=== PATIENT | male | born 1950 | race Caucasian/White ===

== ENCOUNTER 2016-07-03 06:22 | Inpatient (IN) | payer OTHER ==
[2016-06-26 14:22] LABS: BASOPHILS 0.3 %; BASOPHILS ABSOLUTE 0.02 10/3/uL (0.0-0.16); EOSINOPHILS 1.7 %; EOSINOPHILS ABSOLUTE 0.11 10/3/uL (0.0-0.53); HEMATOCRIT 44.1 % (40.0-51.0); HEMOGLOBIN 13.9 g/dL (13.6-17.8); IMMATURE GRANULOCYTES 0.2 %; IMMATURE GRANULOCYTES ABSOLUTE 0.01 10/3/uL (0.0-0.11); LYMPHOCYTES 28.4 %; LYMPHOCYTES ABSOLUTE 1.79 10/3/uL (0.67-4.30); MANUAL DIFF NO %; MEAN CORPUS HGB CONC 31.5 g/dL (32.0-36.0); MEAN CORPUSCULAR HEMOGLOB 28.1 pg (26.0-34.0); MEAN CORPUSCULAR VOLUME 89.3 fL (80-100); MONOCYTES 5.9 %; MONOCYTES ABSOLUTE 0.37 10/3/uL (0.21-1.20); NEUTROPHILS 63.5 %; PLATELET COUNT 171 10/3/uL (150-400); RBC DISTRIBUTION WIDTH 20.8 % (12.0-16.0); RED CELL COUNT 4.94 10/6/uL (4.7-6.1); WHITE BLOOD CELLS 6.3 10/3/uL (4.5-10.5)
[2016-06-26 14:32] LABS: INTERNATIONAL NORMAL RATI 1.1 UNITS (-); PROTIME (NOT ORD) 14.1 SEC (12.0-14.5)
[2016-06-26 14:36] LABS: % IRON SAT 64 % (20-50); A/G RATIO 1.1 (0.7-1.9); ALKALINE PHOSPHATASE 51 U/L (45-117); BUN (BLOOD UREA NITROGEN) 19 MG/DL (6-23); CALCIUM, SERUM 9.2 MG/DL (8.5-10.4); CHLORIDE, SERUM 105 MMOL/L (96-112); CO2 (CARBON DIOXIDE) 32 MMOL/L (24-34); GFR AFRICAN AMERICAN 80 ML/MIN (>=60); GFR NON AFRICAN AMERICAN 69 ML/MIN (>=60); GLOBULIN 3.6 G/DL (2.5-4.1); GLUCOSE, SERUM 86 MG/DL (60-99); IRON BINDING CAPACITY 365 MCG/DL (250-450); IRON, SERUM 233 MCG/DL (35-150); SGOT(AST) 13 U/L (5-40); SGPT(ALT) 25 U/L (5-65); SODIUM, SERUM 141 MMOL/L (135-148); TOTAL BILIRUBIN 0.5 MG/DL (0-1.2); TOTAL PROTEIN 7.6 G/DL (6.0-8.5)
[2016-06-26 14:38] LABS: POTASSIUM, SERUM 4.6 MMOL/L (3.5-5.3)
[2016-06-26 15:30] LABS: ASCORBIC ACID (UR NOT ORDER) NEG (NEG); BILIRUBIN, URINE NEGATIVE (NEG); KETONE, URINE NEGATIVE (NEG); LEUKOCYTE ESTERASE(NOT OR NEG (NEG); WBC (NOT ORDERED) (RFLEX) < 1 (0-5)
--- NOTE | ~2016-07-03 | DS ---
Discharge Summary [facility] [address] [place]. [address] NAME: CHILO FERMIN : 46 STATUS : DIS IN PAT#: [id number] AGE: 65 ADM/REG DATE : 07/03/16 MR#: [id number] REPORT SERV DATE: 07/16/16 DICTATED BY: CHILO ESPINO DATE: 07/16/16 REPORT STATUS : Draft TRANSCRIBED BY: JOSÉ MIGUEL DATE: 07/16/16 Data Collection from hospitalization DISCHARGE DIAGNOSES: 1. Mitral insufficiency. 2. Chronic obstructive pulmonary disease. 3. Hypertension. 4. Oral anticoagulation. 5. History of lung cancer. 6. Anemia. 7. Former smoker. CONSULTATIONS: Lacey Guevara M.D. PROCEDURES PERFORMED: Mitral valve repair using [place]-Neftali garrett-cords x3, mitral valve annuloplasty using 38 mm annuloplasty ring system (Physio II), and transesophageal echocardiography on 07/03/2016. PATHOLOGY: Left atrial appendage resected portion - cardiac tissues - within normal limits. MEDICATIONS: Vitamin C 1000 mg twice a day, aspirin 81 mg daily, Lipitor 10 mg at bedtime, ferrous sulfate 325 mg three times a day, Prozac 20 mg at bedtime, Lasix 40 mg daily, Argos 5/325 one to two tablets every four hours as needed, Ativan 0.5 mg three times a day as needed, Lopressor 25 mg twice a day, Zyprexa 5 mg at bedtime, Protonix 40 mg at bedtime, Klor-Con 20 mEq daily, and Coumadin 2 mg daily. Coumadin would be held on 07/08/2016 and resumed on 07/09/2016. He was instructed not to continue lisinopril/hydrochlorothiazide 20/25. CONDITION AT DISCHARGE: Stable. DISPOSITION: The patient was discharged home on an 1800-calorie diabetic/cardiac diet with activities as instructed. He would follow up with Dr. Joseph Mcdaniel on 08/07/2016 and Abelino Mendoza on 07/30/2016. He would follow up with a new primary care physician following discharge and would follow up at the [facility] on 07/10/2016. HOSPITAL COURSE: This is a 65-year-old man who has a history of mitral valve insufficiency. He has had progressive dyspnea and fatigue over the past one to two years. He recently had an echocardiogram that demonstrated worsening mitral valve insufficiency within an eccentric jet, it was felt to be severe. Transesophageal echocardiogram was performed and confirmed to the eccentricity of the mitral regurgitant jet and appeared to be a cleft between A2 and A3. The patient had a Salazar-looking valve with redundant anterior and posterior leaflets. There was no evidence of ruptured cord or severe collapse. Cardiac catheterization demonstrated no surgically significant coronary artery disease. Ventricular function was preserved with ejection fraction greater than 50%. There was mild aortic insufficiency. Treatment options were discussed and it was elected to proceed with surgical intervention. He was in the hospital for further evaluation and treatment. Upon admission, he was taken to the operating room where he underwent the above-mentioned Discharge Summary [address] [address] NAME: MEGCHILO DEL ROSARIO : 46 STATUS : DIS IN PAT#: [id number] AGE: 65 ADM/REG DATE : 07/03/16 MR#: [id number] REPORT SERV DATE: 07/16/16 DICTATED BY: CHILO ESPINO DATE: 07/16/16 REPORT STATUS : Draft TRANSCRIBED BY: JOSÉ MIGUEL DATE: 07/16/16 procedure. He tolerated this well, and there were no complications. Postoperatively, he was seen by Dr. Lacey Guevara. The patient was still intubated and sedated. He was on pressor support. He was in a sinus rhythm. Left ventricular ejection fraction of 60%. On postop day #1, Milrinone drip continued. Chest tubes were in place as well as his pacing wires. His lungs were clear. He is being weaned off his drips. On 07/05/2016, he complained of pain at the chest tube site and some sternal soreness. He had no shortness of breath or palpitations. Atrial fibrillation prophylaxis continued. His white count was 20.5. Cardene and Dobutrex drip were being weaned. On 07/06/2016, he was in a normal sinus rhythm. Warfarin was going to begin. Amiodarone was stopped. He was encouraged to be up sitting in a chair. He was in atrial fibrillation - rate controlled. Over the next couple of days, he continued to do well. He was ambulatory. His edema had decreased. Beta-manolo was increased. FLORENTINO inhibitor was decreased. Discharge planning was performed. On 07/08/2016, he continued to do well. INR level was 2.2. His incisions looked okay. He had 2+ lower extremity edema. Discharge instructions were given. Due to his improved and stable condition, he was discharged home with the above-stated instructions. Information collected by: Kinza Hutton I submit the above information as my discharge summary. ROBERT/JOSÉ MIGUEL Chilo Espino M.D. / [id number] CC: Bhargav Ojeda M.D.
--- NOTE | ~2016-07-03 | OP ---
Record Of Operation [facility] [address] [place]. [address] NAME: CHILO FERMIN : 46 STATUS : ADM IN PAT#: [id number] AGE: 65 ADM/REG DATE : 07/03/16 MR#: [id number] REPORT SERV DATE: 07/06/16 DICTATED BY: CHILO ESPINO DATE: 07/06/16 REPORT STATUS : Draft TRANSCRIBED BY: MODL DATE: 07/06/16 DATE OF PROCEDURE: 07/03/2016 CONTINUATION: FINDINGS: 1. Cross-clamp time 89 minutes. Total pump time 158 minutes. 2 L of Custodiol solution given antegrade x1. 2. The mitral valve was very myxomatous and redundant. There is anterior leaflet and posterior leaflet redundancy. The P2 cusp of the posterior leaflet did appear to rise above the plane of the valve with distention of the ventricle. We placed three [place]- Neftali NeoChords on this P2 cusp of the posterior leaflet, which lowered the coapting plane of P2 to A2. This improved the overall coaptation of the anterior and posterior leaflets to greater than 2 cm with resolution of insufficiency on saline injection into the left ventricle. 3. We placed a 38 mm annuloplasty ring system to support and reinforce this repair. 23 cor-knots were used to secure it in place. 4. We did ligate and amputate the left atrial appendage. 5. On coming off the heart-lung bypass machine, there was right ventricular hypocontractility requiring extra rest on the heart-lung bypass machine. I suspected air was the cause of this. We did have to rest on cardiopulmonary bypass. After about 30-45 minutes extra, and with inotropic agents, we were able to come off the bypass pump and with nice resolution of the inferior ST lead changes that you could see on EKG during this time. At the end of the operation, PATRICIO demonstrated left ventricular function to be near normal. There was mild hypocontractility of the right ventricle, but still was functioning well. There was less than 1+ or trace mitral insufficiency per Dr. Malloy. PATHOLOGIC SPECIMENS: Include the left atrial appendage. DESCRIPTION OF PROCEDURE: The patient was brought to the operating suite where general anesthesia was induced, airway secured with an endotracheal tube. Lines were secured by Anesthesia and Leong catheter was placed. PATRICIO probe was placed by Dr. Malloy and examination carried out as discussed above. A midline sternal incision was made and the sternum opened with a saw. Lines were passed from the field for cardiopulmonary bypass and cleared of air. Heparin was administered by Anesthesia. Cannulation pursestring sutures were placed in the ascending aorta and right atrium and cannulation carried out in routine manner. A dual-stage venous cannula was placed in the right atrial appendage. When all was in readiness, the patient was placed on cardiopulmonary bypass. The ligament of Darvin near the base of the left atrial appendage was divided using cautery. The aorta was then cross clamped. Initial and only dose of cold crystalloid solution using Custodiol was administered in antegrade fashion for a total of 2 L. During this time, a small left Record Of Operation [place] [id number] [facility] [place] [place]. [address] NAME: CHILO FERMIN : 46 STATUS : ADM IN [facility]#: [id number] AGE: 65 ADM/REG DATE : 07/03/16 MR#: [id number] REPORT SERV DATE: 07/06/16 DICTATED BY: CHILO ESPINO DATE: 07/06/16 REPORT STATUS : Draft TRANSCRIBED BY: JOSÉ MIGUEL DATE: 07/06/16 atriotomy was made after dissecting out the interatrial groove of [place]. The heart was then gently retracted towards the surgeon. The left atrial appendage was grasped. It was ligated and amputated at its base using thoracoscopic stapler and a 60 mm purple staple load. Following the first dose of cardioplegia, the interatrial groove of [place] was fully dissected and the left atriotomy enlarged. The Chacha retractor apparatus was assembled and positioned allowing good visualization of the mitral valve. The mitral valve was inspected and iced saline was used in distending the left ventricle. There was a very redundant P2 cusp of the posterior leaflet of the mitral valve. There was no flail leaflet and no ruptured cords. I did not see a significant cleft between A2 and A3. 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 I felt that shortening the excursion of P2 and lowering the height of the P2 cusp with systole would improve coaptation in the anterior leaflet and posterior leaflet and hopefully resolve most of the mitral insufficiency. This was planned out and the adjacent chordae were measured to P3 and lateral edges of P2 at 18 mm. We then used [place]-Neftali CV-4 suture and created three NeoChords. This was then secured to the papillary muscle with a pledgeted CV-4 suture. Then, each loop of the NeoChord was brought up to the free edge of the P2 cusp and secured in place using a 5-0 Prolene suture. After placement of the [place]-Neftali NeoChords and after each [place]-Neftali NeoChord was secured, iced saline injection through the orifice of the mitral valve was performed to qa automation developer the repair. Following the placement of three [place]-Neftali NeoChords. The ventricle would stand very nicely and with no insufficiency. There was good coaptation in the anterior and posterior leaflet and even in the region of P2 cusp, which was redundant. We did not see any areas of cleft that had any significant leak. The valve was then sized and a 38 mm annuloplasty ring system was selected (Physio II). Interrupted nonpledgeted sutures of 2-0 Ti-Cron placed circumferentially about the mitral valve annulus in a horizontal mattress fashion. The sutures were then passed through the sewing cuff of the valve, which was lowered into position. Each of the sutures were then individually secured and divided using a cor-knot device. A total of 23 cor-knots were utilized. Iced saline injection through the orifice of the mitral valve as the final test demonstrated no insufficiency. An LV vent was then placed through right superior pulmonary vein and directed through the mitral valve orifice into the left ventricle. The patient was placed in Trendelenburg and left atriotomy was closed in a two-layer fashion with running pledgeted suture of 4-0 Prolene. Then, the left ventricle and ascending aorta were de-aired, and aortic cross-clamp was removed. Ventricular and atrial pacing wires have been placed. Suture lines and staple lines on the base of the left atrial appendage were inspected and made hemostatic. The heart was allowed to rest on cardiopulmonary bypass. Ventilations were begun. The heart had an overall hypocontractile state and there was significant ST elevation in the inferior leads. Using the PATRICIO probe, Dr. Malloy was able to see the circumflex vessel and confirmed that there was good flow through the circumflex vessel. The right coronary artery was ascertained and we did not see air and there was good dopplerable signal through the right coronary artery. I considered the fact that possibly we dislodged air into the right coronary artery during our testing of the Record Of Operation [place] [address] [place]. [address] NAME: CHILO FERMIN : 46 STATUS : ADM IN PAT#: [id number] AGE: 65 ADM/REG DATE : 07/03/16 MR#: [id number] REPORT SERV DATE: 07/06/16 DICTATED BY: CHILO ESPINO DATE: 07/06/16 REPORT STATUS : Draft TRANSCRIBED BY: MODL DATE: 07/06/16 mitral valve. We decided at that point to just rest the heart on bypass as there was evidence that the ST elevation was coming down with time. With an additional 30-45 minutes on the bypass pump, ST elevation had largely diminished. Right ventricular contractility was improving and inotropic agents were started. After adequate rest on bypass with inotropic agents, the heart was allowed to fill and eject. De-airing was confirmed on PATRICIO, and when de-airing was completed, the LV vent was removed and these pursestring sutures tied. The ascending aortic vent was likewise removed and these pursestring sutures tied and reinforced. The patient was then weaned from cardiopulmonary bypass with inotropic support. The venous cannula was removed and the pursestring suture secured and later tied. PATRICIO examination demonstrated good left ventricular function with mildly reduced right ventricular contractility. There was a very trivial jet of MR seen with echo and this is graded to be less than mild. There was no significant tricuspid valve insufficiency. Protamine was administered by Anesthesia and following a period of hemodynamic stability, the aortic cannula was removed and these pursestring sutures tied and reinforced. The patient continued do well and chest was irrigated copiously with saline. Meticulous hemostasis was obtained. Hemasorb was ordered was placed along the cut edge of the sternum. Once hemostasis was assured, the pericardium was draped over the anterior surface of heart and tacked into position. Chest tubes were placed and the sternum reapproximated with 8 sternal wires. The clavipectoral fascia and linea alba closed with #1 Stratafix as was subcutaneous tissue. The skin was closed in subcuticular fashion. The patient tolerated the procedure well. There were no complications. Sponge and needle counts were correct. DISPOSITION: The patient left intubated, sedated, and transported to the intensive care unit in stable condition. WAYNE/JOSÉ MIGUEL Chilo Espino M.D. / [id number] CC: Bhargav Ojeda M.D. Donald Robinson, M.D.
--- NOTE | ~2016-07-03 | OP ---
Record Of Operation [facility] [address] [place]. [address] NAME: CHILO FERMIN : 46 STATUS : ADM IN PAT#: [id number] AGE: 65 ADM/REG DATE : 07/03/16 MR#: [id number] REPORT SERV DATE: 07/06/16 DICTATED BY: CHILO ESPINO DATE: 07/06/16 REPORT STATUS : Draft TRANSCRIBED BY: MODL DATE: 07/06/16 DATE OF PROCEDURE: 07/03/2016 PREOPERATIVE DIAGNOSES: 1. Mitral valve insufficiency. 2. Myxomatous mitral valve. 3. Chronic obstructive pulmonary disease. 4. History of right lower lobe lung cancer and status post right lower lobectomy. 5. Hypertension. POSTOPERATIVE DIAGNOSES: 1. Mitral valve insufficiency. 2. Myxomatous mitral valve. 3. Chronic obstructive pulmonary disease. 4. History of right lower lobe lung cancer and status post right lower lobectomy. 5. Hypertension. PROCEDURE PERFORMED: 1. Mitral valve repair using [place]-Neftali garrett-chords x3. 2. Mitral valve annuloplasty using 38 mm annuloplasty ring system (Physio 2). 3. Transesophageal echocardiography. SURGEON: Chilo Espino M.D. ASSISTANTS: Roman Reynolds and Gonzales Alvarado. ANESTHESIA: General with Dr. Malloy. BEHAVIORAL HEALTH CONSULTANT: Joseph Mcdaniel M.D. INDICATIONS: This is a 65-year-old gentleman with a history of mitral valve insufficiency. He has had progressive dyspnea and fatigue over the last one to two years. He recently had an echocardiogram that demonstrated worsening mitral valve insufficiency with an eccentric jet. It was felt to be severe. PATRICIO was then performed and has confirmed the eccentricity of the mitral regurgitant jet and appeared to be a cleft between A2 and A3, and the patient had a Salazar's-looking valve with redundant anterior and posterior leaflets. There were no evidence of ruptured cords or severe prolapse. Cardiac catheterization was then performed demonstrating no surgically significant coronary artery disease. Ventricular function was preserved with an ejection fraction greater than 50%. There was mild aortic insufficiency. We were asked to see the patient for possible mitral valve repair or replacement. We discussed the operation with the patient and his family and after discussing the operations, indication, risks, he wished to proceed. Preoperatively, SDS risk of mortality with surgery less than 1% risk of morbidity, mortality less than 10% were shared with the family. FINDINGS AT OPERATION: 1. Cross-clamp 89 minutes. Total pump time 158 minutes. We utilized chcf Record Of Operation [address] [address] NAME: CHILO FERMIN : 46 STATUS : ADM IN [facility]#: [id number] AGE: 65 ADM/REG DATE : 07/03/16 MR#: [id number] REPORT SERV DATE: 07/06/16 DICTATED BY: CHILO ESPINO DATE: 07/06/16 REPORT STATUS : Draft TRANSCRIBED BY: JOSÉ MIGUEL DATE: 07/06/16 crystalloid solution. 2. Mitral valve was myxomatous with anterior and posterior leaflet redundancy. There was extremely redundant P2 cusp. INCOMPLETE DICTATION WAYNE/JOSÉ MIGUEL Chilo Espino M.D. / [id number] CC: Bhargav Ojeda M.D.
[~2016-07-03 06:22] MED LIST: ATV.5 PO; ATV1 PO; FERROUS SULF325 M1 PO; LOP25 PO; MULTIPLE VIT PO; NORCO1 TAB PO; PRIN20 PO; PROTONIX PO; PROZAC PO; REST15 PO; ROLAIDS PO; ZESTORETIC1 TA1 PO; ZYP5 PO; ZYPREXA ZYDI20 MG PO
[2016-07-03 15:33] LABS: BE (BASE EXCESS) -8.9 MEQ/L (0 +/- 2.5); CARBOXYHEMOGLOBIN 0.3 % (0-3); INSTRUMENT SERIAL # 11843; METHEMOGLOBIN 0.5 % (0-3); MODE SIMV; O2 CONTENT 16.8 VOL% (18-24); OPERATOR ID 19104; PCO2 (CO2 TENSION) 37 MMHG (35-45); PO2 (O2 TENSION) 174 MMHG (79-93); SAMPLE Arterial; TIDAL VOLUME 800 ML; pH 7.28 (7.37-7.43)
[2016-07-03 16:11] LABS: BUN (BLOOD UREA NITROGEN) 19 MG/DL (6-23); CHLORIDE, SERUM 112 MMOL/L (96-112); CREATININE 1.21 MG/DL (0.70-1.30); GFR AFRICAN AMERICAN 71 ML/MIN (>=60); GFR NON AFRICAN AMERICAN 62 ML/MIN (>=60); INTERNATIONAL NORMAL RATI 1.7 UNITS (-); PARTIAL THROMBO TIME 30.6 SEC (22.5-37.2); SODIUM, SERUM 145 MMOL/L (135-148)
[2016-07-03 16:12] LABS: CALCIUM, SERUM 8.1 MG/DL (8.5-10.4); CO2 (CARBON DIOXIDE) 20 MMOL/L (24-34); GLUCOSE, SERUM 126 MG/DL (60-99); POTASSIUM, SERUM 3.9 MMOL/L (3.5-5.3); PROTIME (NOT ORD) 19.6 SEC (12.0-14.5)
[2016-07-03 16:17] LABS: HEMOGLOBIN 11.4 g/dL (13.6-17.8)
[2016-07-03 16:20] LABS: HEMATOCRIT 35.4 % (40.0-51.0); PLATELET COUNT 84 10/3/uL (150-400)
[2016-07-03 18:48] LABS: BE (BASE EXCESS) -5.2 MEQ/L (0 +/- 2.5); CARBOXYHEMOGLOBIN 0.1 % (0-3); DEVICE NC; HCO3 (ACTUAL BICARBONATE) 20.3 MEQ/L (23-27); HEMOBLOGIN CONTENT 12.6 G/DL (14-18); INSTRUMENT SERIAL # 11843; METHEMOGLOBIN 0.5 % (0-3); O2 CONTENT 16.6 VOL% (18-24); OPERATOR ID 13715; PCO2 (CO2 TENSION) 39 MMHG (35-45); PO2 (O2 TENSION) 74 MMHG (79-93); SAMPLE Arterial; pH 7.33 (7.37-7.43)
[2016-07-03 22:16] LABS: HEMATOCRIT 36.6 % (40.0-51.0); HEMOGLOBIN 12.1 g/dL (13.6-17.8)
[2016-07-03 22:26] LABS: POTASSIUM, SERUM 4.2 MMOL/L (3.5-5.3)
[2016-07-04 05:25] LABS: INTERNATIONAL NORMAL RATI 1.3 UNITS (-)
[2016-07-04 05:30] LABS: PROTIME (NOT ORD) 16.3 SEC (12.0-14.5)
[2016-07-04 05:35] LABS: BUN (BLOOD UREA NITROGEN) 25 MG/DL (6-23); CHLORIDE, SERUM 108 MMOL/L (96-112); CO2 (CARBON DIOXIDE) 23 MMOL/L (24-34); CREATININE 0.93 MG/DL (0.70-1.30); GFR AFRICAN AMERICAN 98 ML/MIN (>=60); GFR NON AFRICAN AMERICAN 85 ML/MIN (>=60); GLUCOSE, SERUM 139 MG/DL (60-99); POTASSIUM, SERUM 4.3 MMOL/L (3.5-5.3); SODIUM, SERUM 140 MMOL/L (135-148)
[2016-07-04 06:13] LABS: BASOPHILS 0.1 %; BASOPHILS ABSOLUTE 0.01 10/3/uL (0.0-0.16); EOSINOPHILS 0 %; HEMATOCRIT 33.5 % (40.0-51.0); HEMOGLOBIN 11.3 g/dL (13.6-17.8); IMMATURE GRANULOCYTES 0.2 %; IMMATURE GRANULOCYTES ABSOLUTE 0.02 10/3/uL (0.0-0.11); LYMPHOCYTES 3.9 %; LYMPHOCYTES ABSOLUTE 0.45 10/3/uL (0.67-4.30); MEAN CORPUSCULAR HEMOGLOB 29.9 pg (26.0-34.0); MEAN CORPUSCULAR VOLUME 88.6 fL (80-100); MONOCYTES 3.7 %; MONOCYTES ABSOLUTE 0.43 10/3/uL (0.21-1.20); NEUTROPHILS 92.1 %; NEUTROPHILS ABSOLUTE 10.56 10/3/uL (2.02-8.40); PLATELET COUNT 84 10/3/uL (150-400)
[2016-07-04 06:14] LABS: MANUAL DIFF NO %; MEAN CORPUS HGB CONC 33.7 g/dL (32.0-36.0); RED CELL COUNT 3.78 10/6/uL (4.7-6.1); WHITE BLOOD CELLS 11.5 10/3/uL (4.5-10.5)
[2016-07-04 07:09] LABS: ANISOCYTOSIS 1+ (5-10/OIF) (0-5/OIF)
[2016-07-04 07:10] LABS: PLATELET ESTIMATE DEC (ADEQUATE)
[2016-07-04 15:57] LABS: HEMATOCRIT 33.2 % (40.0-51.0); HEMOGLOBIN 11.2 g/dL (13.6-17.8)
[2016-07-04 16:04] LABS: POTASSIUM, SERUM 4.6 MMOL/L (3.5-5.3)
[2016-07-05 04:33] LABS: BASOPHILS 0 %; EOSINOPHILS 0 %; HEMATOCRIT 34.1 % (40.0-51.0); HEMOGLOBIN 11.1 g/dL (13.6-17.8); IMMATURE GRANULOCYTES 0.1 %; IMMATURE GRANULOCYTES ABSOLUTE 0.03 10/3/uL (0.0-0.11); LYMPHOCYTES 6.1 %; LYMPHOCYTES ABSOLUTE 1.25 10/3/uL (0.67-4.30); MEAN CORPUS HGB CONC 32.6 g/dL (32.0-36.0); MEAN CORPUSCULAR HEMOGLOB 29.1 pg (26.0-34.0); MEAN CORPUSCULAR VOLUME 89.3 fL (80-100); MONOCYTES 5.7 %; MONOCYTES ABSOLUTE 1.16 10/3/uL (0.21-1.20); NEUTROPHILS 88.1 %; NEUTROPHILS ABSOLUTE 18.04 10/3/uL (2.02-8.40); PLATELET COUNT 92 10/3/uL (150-400); RBC DISTRIBUTION WIDTH 20.4 % (12.0-16.0); RED CELL COUNT 3.82 10/6/uL (4.7-6.1)
[2016-07-05 04:34] LABS: MANUAL DIFF NO %; WHITE BLOOD CELLS 20.5 10/3/uL (4.5-10.5)
[2016-07-05 04:38] LABS: CALCIUM, SERUM 7.8 MG/DL (8.5-10.4); CHLORIDE, SERUM 102 MMOL/L (96-112); CO2 (CARBON DIOXIDE) 23 MMOL/L (24-34); CREATININE 0.98 MG/DL (0.70-1.30); GFR AFRICAN AMERICAN 92 ML/MIN (>=60); GFR NON AFRICAN AMERICAN 79 ML/MIN (>=60); POTASSIUM, SERUM 4.8 MMOL/L (3.5-5.3); SODIUM, SERUM 134 MMOL/L (135-148)
[2016-07-05 04:39] LABS: BUN (BLOOD UREA NITROGEN) 29 MG/DL (6-23); GLUCOSE, SERUM 100 MG/DL (60-99)
[2016-07-05 05:41] LABS: ANISOCYTOSIS 1+ (5-10/OIF) (0-5/OIF); PLATELET ESTIMATE DEC (ADEQUATE)
[2016-07-05 05:42] LABS: HELMET CELLS OCC (0-2/OIF)
[2016-07-05 22:18] LABS: POTASSIUM, SERUM 4.1 MMOL/L (3.5-5.3)
[2016-07-06 03:41] LABS: BASOPHILS 0 %; EOSINOPHILS 0 %; HEMATOCRIT 32.5 % (40.0-51.0); HEMOGLOBIN 10.8 g/dL (13.6-17.8); IMMATURE GRANULOCYTES 0.4 %; IMMATURE GRANULOCYTES ABSOLUTE 0.07 10/3/uL (0.0-0.11); LYMPHOCYTES 7.1 %; LYMPHOCYTES ABSOLUTE 1.26 10/3/uL (0.67-4.30); MEAN CORPUS HGB CONC 33.2 g/dL (32.0-36.0); MEAN CORPUSCULAR VOLUME 90.3 fL (80-100); MEAN PLATELET VOLUME 11.1 fL (9.2-13.0); MONOCYTES ABSOLUTE 1.25 10/3/uL (0.21-1.20); NEUTROPHILS 85.5 %; NEUTROPHILS ABSOLUTE 15.24 10/3/uL (2.02-8.40); PLATELET COUNT 83 10/3/uL (150-400); RBC DISTRIBUTION WIDTH 20.2 % (12.0-16.0); WHITE BLOOD CELLS 17.8 10/3/uL (4.5-10.5)
[2016-07-06 03:43] LABS: MANUAL DIFF NO %
[2016-07-06 03:55] LABS: BUN (BLOOD UREA NITROGEN) 28 MG/DL (6-23); CALCIUM, SERUM 7.7 MG/DL (8.5-10.4); CHLORIDE, SERUM 105 MMOL/L (96-112); CO2 (CARBON DIOXIDE) 24 MMOL/L (24-34); CREATININE 0.98 MG/DL (0.70-1.30); GFR AFRICAN AMERICAN 92 ML/MIN (>=60); GFR NON AFRICAN AMERICAN 79 ML/MIN (>=60); GLUCOSE, SERUM 100 MG/DL (60-99); POTASSIUM, SERUM 4.6 MMOL/L (3.5-5.3); SODIUM, SERUM 136 MMOL/L (135-148)
[2016-07-06 05:32] LABS: GIANT PLATELET OCC; PLATELET ESTIMATE DEC (ADEQUATE)
[2016-07-07 06:14] LABS: BASOPHILS 0 %; EOSINOPHILS 0.3 %; EOSINOPHILS ABSOLUTE 0.03 10/3/uL (0.0-0.53); HEMATOCRIT 31.5 % (40.0-51.0); HEMOGLOBIN 10.5 g/dL (13.6-17.8); IMMATURE GRANULOCYTES 0.2 %; IMMATURE GRANULOCYTES ABSOLUTE 0.02 10/3/uL (0.0-0.11); LYMPHOCYTES 14.4 %; LYMPHOCYTES ABSOLUTE 1.45 10/3/uL (0.67-4.30); MANUAL DIFF NO %; MEAN CORPUS HGB CONC 33.3 g/dL (32.0-36.0); MEAN CORPUSCULAR HEMOGLOB 30.3 pg (26.0-34.0); MEAN CORPUSCULAR VOLUME 90.8 fL (80-100); MEAN PLATELET VOLUME 10.7 fL (9.2-13.0); MONOCYTES 9.8 %; MONOCYTES ABSOLUTE 0.99 10/3/uL (0.21-1.20); NEUTROPHILS 75.3 %; NEUTROPHILS ABSOLUTE 7.58 10/3/uL (2.02-8.40); PLATELET COUNT 85 10/3/uL (150-400); RBC DISTRIBUTION WIDTH 20.3 % (12.0-16.0); RED CELL COUNT 3.47 10/6/uL (4.7-6.1); WHITE BLOOD CELLS 10.1 10/3/uL (4.5-10.5)
[2016-07-07 06:16] LABS: INTERNATIONAL NORMAL RATI 1.5 UNITS (-)
[2016-07-07 06:24] LABS: BUN (BLOOD UREA NITROGEN) 22 MG/DL (6-23); CHLORIDE, SERUM 104 MMOL/L (96-112); CO2 (CARBON DIOXIDE) 26 MMOL/L (24-34); CREATININE 0.84 MG/DL (0.70-1.30); GFR AFRICAN AMERICAN 105 ML/MIN (>=60); GFR NON AFRICAN AMERICAN 91 ML/MIN (>=60); GLUCOSE, SERUM 114 MG/DL (60-99); POTASSIUM, SERUM 4.6 MMOL/L (3.5-5.3); SODIUM, SERUM 139 MMOL/L (135-148)
[2016-07-07 06:34] LABS: ANISOCYTOSIS 1+ (5-10/OIF) (0-5/OIF); PLATELET ESTIMATE DEC (ADEQUATE); POLYCHROMASIA 1+ (2-5/OIF) (0-1/OIF)
[2016-07-08 06:37] LABS: BASOPHILS 0.1 %; BASOPHILS ABSOLUTE 0.01 10/3/uL (0.0-0.16); EOSINOPHILS 3.1 %; EOSINOPHILS ABSOLUTE 0.31 10/3/uL (0.0-0.53); HEMATOCRIT 33.4 % (40.0-51.0); IMMATURE GRANULOCYTES 0.1 %; IMMATURE GRANULOCYTES ABSOLUTE 0.01 10/3/uL (0.0-0.11); LYMPHOCYTES 21.2 %; LYMPHOCYTES ABSOLUTE 2.09 10/3/uL (0.67-4.30); MEAN CORPUS HGB CONC 32.9 g/dL (32.0-36.0); MEAN CORPUSCULAR HEMOGLOB 30.4 pg (26.0-34.0); MEAN CORPUSCULAR VOLUME 92.3 fL (80-100); MONOCYTES 9.9 %; MONOCYTES ABSOLUTE 0.98 10/3/uL (0.21-1.20); NEUTROPHILS 65.6 %; NEUTROPHILS ABSOLUTE 6.45 10/3/uL (2.02-8.40); RBC DISTRIBUTION WIDTH 19.8 % (12.0-16.0); RED CELL COUNT 3.62 10/6/uL (4.7-6.1); WHITE BLOOD CELLS 9.9 10/3/uL (4.5-10.5)
[2016-07-08 06:38] LABS: MANUAL DIFF NO %; PLATELET COUNT 123 10/3/uL (150-400)
[2016-07-08 06:39] LABS: INTERNATIONAL NORMAL RATI 2.2 UNITS (-); PROTIME (NOT ORD) 24.3 SEC (12.0-14.5)
[2016-07-08 06:48] LABS: BUN (BLOOD UREA NITROGEN) 19 MG/DL (6-23); CALCIUM, SERUM 8.3 MG/DL (8.5-10.4); CHLORIDE, SERUM 104 MMOL/L (96-112); CO2 (CARBON DIOXIDE) 30 MMOL/L (24-34); GFR AFRICAN AMERICAN 102 ML/MIN (>=60); GFR NON AFRICAN AMERICAN 88 ML/MIN (>=60); GLUCOSE, SERUM 92 MG/DL (60-99); POTASSIUM, SERUM 4.1 MMOL/L (3.5-5.3); SODIUM, SERUM 141 MMOL/L (135-148)
[2016-07-08] MEDS ORDERED: VITC500 PO (11:18)
[2016-07-08] MEDS ORDERED: NORCO1 TA1 PO (11:21)
[2016-07-08] MEDS ORDERED: L40 PO (11:22)
[2016-07-08] MEDS ORDERED: KLOR-CON M2020 MEQ PO (11:22)
[2016-07-08] MEDS ORDERED: C2 PO (11:23)
[2016-07-08] MEDS ORDERED: ASAB PO (11:24)
[2016-07-08] MEDS ORDERED: LIPITOR10 PO (11:25)
== END 2016-07-08 12:38 | disposition home or self-care (01) | DRG 221 ==
LOC: SDC/OF 06:22 → CVICU 11:41 → 5NO 07-06 18:39
PROVIDERS: Internal Medicine Cardiovascular Disease; Nurse Practitioner Family; Thoracic Surgery (Cardiothoracic Vascular Surgery)
PROC: B246ZZ4 Ultrasonography of Right and Left Heart, Transesophageal (ICD-10-PCS; 2016-07-03)
PROC: 02L Heart and Great Vessels, Occlusion (ICD-10-PCS; 2016-07-03)
PROC: 02UG0JZ Supplement Mitral Valve with Synthetic Substitute, Open Approach (ICD-10-PCS; principal; 2016-07-03 08:30)
PROC: 5A1221Z Performance of Cardiac Output, Continuous (ICD-10-PCS; 2016-07-03 08:30)
DX: I34.0 Nonrheumatic mitral (valve) insufficiency (principal); J44.9 Chronic obstructive pulmonary disease, unspecified; I48.0 Paroxysmal atrial fibrillation; I10 Essential (primary) hypertension; Z85.118 Personal history of other malignant neoplasm of bronchus and lung; Z79.01 Long term (current) use of anticoagulants; D50.9 Iron deficiency anemia, unspecified
CPT/HCPCS: 31720; 36415; 71010; 71020; 80048; 80053; 81001; 82330; 82803; 82805; 82947; 82962; 83036; 83540; 83550; 83735; 84132; 84295; 85014; 85018; 85025; 85049; 85347; 85610; 85730; 86850; 86900; 86901; 86920; 87641; 88304; 93005; 93312; 93320; 93325; 94002; 94640; 94660; 94770; A9270-GY; C1713; C1769; C1894; J0282; J0690; J1644; J1940; J2150; J2250; J2260; J2370; J2405; J2720; J2765; J2795; J2930; J3010; J3475; J3480; P9045; P9047